=== PATIENT | male | born 1990 | race Two or more races ===

== ENCOUNTER 2024-11-30 09:28 | Emergency (ER) | payer MEDICAID, SELFPAY ==
[2024-11-30 09:29] VITALS: BMI 30.4
[2024-11-30 10:07] VITALS: BP 147/92; PULSE 60; RESP 19; TEMP 36.7; O2SAT 99
--- NOTE | 2024-11-30 10:11 | XR_ITS ---
Examination: CT abdomen and pelvis without contrast. Coronal 3-D reconstructions. Sagittal 2-D reconstructions. Date and time of exam: 2024 1025 hours INDICATIONS: Onset left-sided flank pain today CTDI: vol (mGy): 11.3 DLP: (mGycm): 763 Technique: Axial images of the abdomen have been obtained, 3 mm slice thickness Intravenous contrast material has not been administered. Low dose protocols were performed. One or more of the following dose reduction techniques were used; automated exposure control, adjustment of the mA and/or KV according to patient size, use of iterative reconstruction technique. Findings: Diffuse fatty infiltration throughout the liver Gallstones Gallbladder wall does not appear thickened. Spleen is not enlarged No pancreatic or adrenal mass Minimal left hydronephrosis secondary to 2 mm distal left ureterovesical junction calculus Normal appendix Aorta normal size No bowel obstruction Scattered colonic diverticulosis, no diverticulitis No prostatomegaly No bladder mass or bladder calculi The osseous structures are intact IMPRESSION: Minimal left hydronephrosis secondary to 2 mm distal left ureterovesical junction calculus
--- NOTE | 2024-11-30 10:12 | PD.EDRME ---
Rapid Medical Screening Exam RME Arrival date/time: 11/30/24 09:28 34-year-old male presents emergency dept today complains of left flank pain Chief Complaint: Abdominal Pain Vital signs: Vital Signs Temperature 98.1 F 11/30/24 10:07 Pulse Rate 60 11/30/24 10:07 Respiratory Rate 19 11/30/24 10:07 Blood Pressure 147/92 H 11/30/24 10:07 Pulse Oximetry (%) 99 11/30/24 10:07 Oxygen Delivery Method Room Air 11/30/24 10:07
[2024-11-30 10:28] LABS: Basophils % (Auto) 1 % (0-2.5); Eosinophils # (Auto) 0.2 Thou/mm3 (0.0-0.5); Eosinophils % (Auto) 3 % (0-10); Hematocrit 44.4 % (41.0-53.0); Hemoglobin 15.3 g/dL (13.5-16.0); Immature Granulocytes % (Auto) 1 % (0-0); Immature Granulocytes Auto 0.03 Thou/mm3 (0.00-0.00); Lymphocytes # (Auto) 2.1 Thou/mm3 (1.0-4.8); Lymphocytes % (Auto) 32 % (10-50); Mean Corpuscular HGB Conc 34.5 g/dl (31.0-37.0); Mean Corpuscular Hemoglobin 30.5 pg (25.0-35.0); Mean Corpuscular Volume 88 fL (80-100); Monocytes # (Auto) 0.5 Thou/mm3 (0.0-0.8); Monocytes % (Auto) 8 % (0-12); Neutrophils # (Auto) 3.7 Thou/mm3 (1.8-7.7); Neutrophils % (Auto) 57 % (37-80); Nucleated Red Blood Cell % 0 /100 WBC (0); Platelet Count 206 Thou/mm3 (140-440); RDW Standard Deviation 40.7 fL (35.1-43.9); Red Blood Count 5.02 Miln/mm3 (4.50-5.90); White Blood Count 6.5 Thou/mm3 (3.8-10.6)
[2024-11-30 10:46] LABS: Alanine Aminotransferase 58 U/L (10-49); Albumin, Serum 4.9 gm/dL (3.5-5.0); Albumin/Globulin Ratio 1.6 (1.2-2.2); Alkaline Phosphatase 77 U/L (46-116); Anion Gap 7 (7-16); Aspartate Amino Transferase 28 U/L (0-34); BUN/Creatinine Ratio 14 Ratio (12-20); Bilirubin,Total 0.9 mg/dL (0.3-1.2); Blood Urea Nitrogen 13 mg/dL (9-23); Calcium 9.3 mg/dL (8.3-10.6); Calcium (Corrected) 9.3 mg/dL (8.5-10.1); Carbon Dioxide 27.1 mMol/L (20.0-31.0); Chloride 106 mMol/L (98-107); Creatinine (Component) 0.9 mg/dL (0.6-1.3); Estimated Creatinine Clearance 156.4 mL/min (>60); Globulin 3.1 gm/dL (2.3-3.5); Glucose 114 mg/dL (74-106); Lipase 38 U/L (12-53); Osmolality,Calculated 280 (275-295); Potassium 4.1 mMol/L (3.4-5.1); Sodium 140 mMol/L (136-145); eGFR > 60 See Note
[2024-11-30] MEDS: KETOROLAC INJ 30 MG/ML VIAL IM (10:47)
[2024-11-30] MEDS: ONDANSETRON ODT 4 MG TABRAP PO (10:48)
[2024-11-30 10:59] LABS: Collection Type, Urine Clean Catch
[2024-11-30 11:15] LABS: Bilirubin,Urine Negative (Negative); Blood,Urine 3+ (Negative); Clarity,Urine Turbid (Clear/Hazy); Culture Indicated,Urine Not Indicated; Glucose, Urine Negative (Negative); Ketones,Urine Negative (Negative); Leukocyte Esterase,Urine Negative (Negative); Nitrite,Urine Negative (Negative); Protein,Urine 1+ (Neg - Trace); RBC,Urine 744 /hpf (0-3); Specific Gravity,Urine 1.025 (1.001-1.035); Squamous Epithelial Cell,Urine < 1 /hpf (0-5); Urobilinogen,Urine Negative mg/dL (0.0-1.0); WBC,Urine 2 /hpf (0-5)
[2024-11-30 11:34] LABS: Color,Urine Amber (Lt Yel-Yel)
--- NOTE | 2024-11-30 12:01 | EDNOTE_ITS ---
ED Abdominal Pain RME/HPI General Chief Complaint: Abdominal Pain Stated complaint: ABD AND BACK PAIN SINCE THIS AM WITH NAUSEA Time seen by provider: 11/30/24 12:01 Arrival date/time: 11/30/24 09:28 34-year-old male with no significant medical problems presents to the emergency department today with complaints of left flank pain patient reports initially had pain which has somewhat resolved at this time but still has pain on the left side Limitations: no limitations RME / HPI RME / HPI narrative: 11/30/24 09:28 34-year-old male presents emergency dept today complains of left flank pain Related Data Previous Rx's ?Medication ?Instructions ?Recorded ibuprofen 800 mg tablet 800 mg PO TID PRN pain #30 t abs 11/30/24 ondansetron 4 mg disintegrating 4 mg PO Q8H PRN nausea and 11/30/24 tablet vomiting #10 tabs tamsulosin 0.4 mg capsule (Flomax) 0.4 mg PO QDAY 14 d ays #14 caps 11/30/24 Allergies Allergy/AdvReac Type Severity Reaction Status Date / Time No Known Allergies Allergy Verified 11/30/24 09:30 Review of Systems Review of Systems Systems Reviewed: All systems reviewed, normal except as documented Constitutional Constitutional: Reports system reviewed and no additional complaints, except as documented, Denies fever(s) and Denies headache(s) Eyes Eyes: Reports system reviewed and no additional complaints, except as documented and Denies blurry vision ENT Ears, Nose, Mouth, and Throat: Reports system reviewed and no additional complaints, except as documented, Denies headache(s), Denies nasal congestion and Denies nasal discharge Cardiovascular Cardiovascular: Reports system reviewed and no additional complaints, except as documented, Denies chest pain and Denies dyspnea Respiratory Respiratory: Reports system reviewed and no additional complaints, except as documented, Denies chest congestion, Denies cough and Denies dyspnea Gastrointestinal Gastrointestinal: Reports system reviewed and no additional complaints, except as documented, Denies abdominal pain and Reports other (Left flank pain) Integumentary/Breasts Skin/Breast: Reports system reviewed and no additional complaints, except as documented and Denies rash Neurologic Neurologic: Reports system reviewed and no additional complaints, except as documented, Reports as per HPI and Denies headache(s) Past Medical History Social History SMOKING STATUS: Never smoker ED Exam General Limitations: Present no limitations General appearance: Present alert and in no apparent distress Head Head exam: Present atraumatic, normocephalic and normal inspection Eye Eye exam: Present normal appearance, PERRL and EOMI; Absent conjunctival injection ENT ENT exam: Present normal exam, normal oropharynx and mucous membranes moist Neck Neck exam: Present normal inspection, full ROM and trachea midline Chest Chest inspection: Present normal inspection and symmetric chest wall rise Respiratory Respiratory exam: Present normal lung sounds bilaterally; Absent respiratory distress Cardiovascular Cardiovascular exam: Present regular rate, normal rhythm and normal heart sounds Abdominal Exam Abdominal exam: Present soft, normal bowel sounds and other (Left flank pain); Absent distention, tenderness, guarding, rebound or rigidity Extremities Exam Extremities exam: Present normal inspection and full ROM Back Exam Back exam: Present normal inspection and full ROM Neurological Exam Neurological exam: Present alert, oriented X3 and CN II-XII intact Psychiatric Psychiatric exam: Present normal affect and normal mood Skin Skin exam: Present warm, dry, intact and normal color Course Quality Measures none Orders Category Date Time Status CT abdomen pelvis wo con Stat Exams 11/30/24 10:11 Completed CBC Stat Lab 11/30/24 10:16 Completed Comprehensive Metabolic Panel Stat Lab 11/30/24 10:16 Completed Lipase Stat Lab 11/30/24 10:16 Completed UA, C/S IF [Urinalysis, C/S if Indicated] Stat Lab 11/30/24 10:50 Completed Ketorolac Inj [Toradol Inj] Med 11/30/24 10:11 Discontinued 30 mg IM X1 ONE Ondansetron Odt [Zofran Odt] Med 11/30/24 10:11 Discontinued 4 mg PO X1 ONE Vital Signs Vital signs: Vital Signs Temperature 98.1 F 11/30/24 10:07 Pulse Rate 60 11/30/24 10:07 Respiratory Rate 19 11/30/24 10:07 Blood Pressure 147/92 H 11/30/24 10:07 Pulse Oximetry (%) 99 11/30/24 10:07 Oxygen Delivery Method Room Air 11/30/24 10:07 O2 saturation 99% room air within the limits Abdominal Pain MDM MDM Narrative MDM Narrative:: 34-year-old male with no significant medical problems presents to the emergency department today with complaints of left flank pain patient reports initially had pain which has somewhat resolved at this time but still has pain on the left side I suspect patient has kidney stone Imaging as well as lab work obtained Patient does have RBCs in his urine consistent with kidney stone CT scan obtained patient has 2 mm kidney stone nonobstructing Patient appears to be relaxed and has no significant pain at time of discharge Patient discharged home in no distress to follow-up with primary care doctor in the next 24 to 48 hours and for any worsening symptoms to return to the ER immediately Patient data External records reviewed:: [facility] previous records Clinical information provided by:: patient Social determinants that could affect healthcare access:: none Patient has the following chronic illnesses:: None How is presenting disease/condition affected by chronic disease/condition?: no chronic disease Evaluation data The following diagnostics were reviewed and interpreted by me:: lab results and radiology exam(s) Lab and/or radiology exams considered but not ordered:: Radiology obtain Interpretation Summary: Reviewed by me Medications / Prescriptions Medications or Prescriptions considered but not ordered:: Given Medication administrations:: Medication Administration History Discontinued Medications Ketorolac Tromethamine (Ketorolac Inj 30 Mg/Ml Vial) 30 mg IM X1 ONE Stop: 11/30/24 10:12 Last Admin: 11/30/24 10:47 Dose: 30 mg Documented By: CHRISTIANO Ondansetron HCl (Ondansetron Odt 4 Mg Tabrap) 4 mg PO X1 ONE; Protocol Stop: 11/30/24 10:12 Last Admin: 11/30/24 10:48 Dose: 4 mg Documented By: CHRISTIANO Given Consultations Consultation(s) initiated? (list below): No Diagnosis Differential diagnosis abdominal pain: abdominal pain, acute appendicitis, constipation, diverticulitis and pancreatitis Most likely diagnosis given after review of the tests above:: Kidney stone Admission Indicated Admission indicated?: not indicated Admission Request Was there a request for admission?: No Disposition Plan Disposition Plan: Discharge Discharge Attestation Discharge Attestation: The patient and all family members were given an opportunity to ask questions and understood the discharge instructions. Discharge instructions specifically effects, indications for sooner follow up or return to the emergency department, and the expected course of current diagnosis. Patient condition: Stable Discharge Plan Plan Patient Disposition: HOME (Self Care) Disposition Comment: Stable Prescriptions/Referrals Prescriptions/Med Rec: New ibuprofen 800 mg tablet 800 mg PO TID PRN (Reason: pain) Qty: 30 0RF tamsulosin [Flomax] 0.4 mg capsule 0.4 mg PO QDAY 14 Days Qty: 14 0RF ondansetron 4 mg tablet,disintegrating 4 mg PO Q8H PRN (Reason: nausea and vomiting) Qty: 10 0RF Referrals: Justo Kenny MD [Primary Care Provider] - In 1 week Problem List Clinical Impression: Renal calculi Patient/Caregiver Discharge Instructions Education Materials: Healthy Kidneys Additional Instructions: Please follow up with your primary care doctor in the next 24-48hrs for any worsening symptoms return here immediately Print Language: [place] Stand Alone Forms: Monica Award Info., Work/School Release, Patient Portal Info Letter PA/SPECIALTY DEPARTMENT SUPERVISOR Supervising Physician PA/SPECIALTY DEPARTMENT SUPERVISOR Supervising Physician: Dr Orta
[2024-11-30 12:08] VITALS: BP 122/76; PULSE 60; RESP 18; TEMP 36.8; O2SAT 97
== END 2024-11-30 12:10 | disposition home or self-care (01) ==
PROVIDERS: Nurse Practitioner Primary Care; Emergency Provider Emergency Medicine; PCP Family Medicine
DX: N20.0 Calculus of kidney (principal)
CPT/HCPCS: 36415; 74176; 80053; 81001; 83690; 85025; 96372; 99284; J1885; Q0162